=== PATIENT | female | born 1955 | race American Indian/Alaskan Native ===

== ENCOUNTER 2020-03-11 12:32 | Emergency (ER) | payer OTHER ==
[2020-03-11] MEDS ORDERED: ASPIRIN 325 MG TAB PO ONE (12:38)
[2020-03-11] MEDS ORDERED: ADENOSINE 6 MG/2 ML INJ ONE (12:43)
--- NOTE | 2020-03-11 13:08 | Emergency Department Report ---
ED General Adult HPI - General Chief complaint: Chest Pain Stated complaint: CHEST PAIN Time Seen by Provider: 03/11/20 12:50 Source: patient Mode of arrival: Ambulatory Limitations: No Limitations - History of Present Illness Initial comments: This is a 64-year-old female who arrives in supraventricular tachycardia to triage. She states that it began at approximately 1130. She did not have prodromal types symptoms. She states that she has had a mild degree of shortness of breath with the tachycardia. She states she had minimal chest discomfort and a mild headache. She is fully ambulatory without neurological change. She did not feel presyncopal. Patient states that she has had episodes like this before. She has not sought out medical care for the same. They were less persistent. She is on no current medications. She denies recent alcohol, substance abuse or consumption of energy drinks or excessive caffeine. She is on no current medications. Apparently she does have a history of mitral valve prolapse. -: Sudden Associated Symptoms: denies other symptoms (Except as above indicated) Treatments Prior to Arrival: none - Related Data Previous Rx's Medication Instructions Recorded Last Taken Type Hydrocodone/Chlorphen P-Stirex 5 ml PO Q12HR PRN #115 ml 10/11/19 Unknown Rx [Tussionex Pennkinetic Susp] Ondansetron [Zofran Odt] 4 mg PO Q8HR PRN #20 tab.rapdis 10/11/19 Unknown Rx Promethazine [Phenergan] 25 mg DE Q6HR PRN #15 supp.rect 10/11/19 Unknown Rx dilTIAZem CD [Cardizem CD] 120 mg PO DAILY #30 cap 03/11/20 Unknown Rx Allergies Allergy/AdvReac Type Severity Reaction Status Date / Time Sulfa (Sulfonamide Allergy Itching Verified 10/11/19 03:09 Antibiotics) ED Review of Systems ROS: Stated complaint: CHEST PAIN Other details as noted in HPI Constitutional: denies: chills, fever Eyes: denies: eye pain, vision change ENT: denies: ear pain, throat pain Respiratory: denies: cough, shortness of breath, wheezing Cardiovascular: as per HPI Endocrine: no symptoms reported Gastrointestinal: denies: abdominal pain, nausea Genitourinary: denies: urgency, dysuria, discharge Musculoskeletal: denies: back pain, joint swelling, arthralgia Skin: denies: rash, lesions Neurological: headache (Mild today). denies: weakness, paresthesias Psychiatric: denies: anxiety, depression Hematological/Lymphatic: denies: easy bleeding, easy bruising ED Past Medical Hx - Past Medical History Previous Medical History?: Yes Additional medical history: mitral valve prolapse - Social History Substance Use Type: None - Medications Home Medications: Home Medications Medication Instructions Recorded Confirmed Last Taken Type Hydrocodone/Chlorphen P-Stirex 5 ml PO Q12HR PRN #115 ml 10/11/19 Unknown Rx [Tussionex Pennkinetic Susp] Ondansetron [Zofran Odt] 4 mg PO Q8HR PRN #20 tab.rapdis 10/11/19 Unknown Rx Promethazine [Phenergan] 25 mg DE Q6HR PRN #15 supp.rect 10/11/19 Unknown Rx dilTIAZem CD [Cardizem CD] 120 mg PO DAILY #30 cap 03/11/20 Unknown Rx ED Physical Exam - General Limitations: No Limitations General appearance: alert, in no apparent distress - Head Head exam: Present: atraumatic, normocephalic - Eye Eye exam: Present: normal appearance. Absent: scleral icterus - ENT ENT exam: Present: mucous membranes moist - Neck Neck exam: Present: normal inspection - Respiratory Respiratory exam: Present: normal lung sounds bilaterally. Absent: respiratory distress - Cardiovascular Cardiovascular Exam: Present: tachycardia. Absent: systolic murmur, diastolic murmur, rubs, gallop - GI/Abdominal GI/Abdominal exam: Present: soft, normal bowel sounds. Absent: distended, tenderness, guarding, rebound - Extremities Exam Extremities exam: Present: normal inspection - Back Exam Back exam: Present: normal inspection - Neurological Exam Neurological exam: Present: alert, oriented X3, CN II-XII intact. Absent: motor sensory deficit - Psychiatric Psychiatric exam: Present: normal affect, normal mood - Skin Skin exam: Present: warm, dry, intact, normal color. Absent: rash ED Course Vital Signs 03/11/20 03/11/20 13:14 13:29 Temperature 98.2 F Pulse Rate 101 H Respiratory 18 18 Rate Blood Pressure 122/88 Blood Pressure 122/88 [Right] O2 Sat by Pulse 96 100 Oximetry - Reevaluation(s) Reevaluation #1: Patient remained asymptomatic here after chemical cardioversion with 6 mg of adenosine. She will be referred to cardiology for further work-up. I will start her on diltiazem as she states that this seems to be a recurrent problem 03/11/20 14:09 Reevaluation #2: Patient remains asymptomatic after cardioversion. 03/11/20 14:16 ED Medical Decision Making - Lab Data Result diagrams: 03/11/20 12:38 03/11/20 12:38 Laboratory Results - last 24 hr 03/11/20 03/11/20 03/11/20 12:38 12:38 Unknown WBC 6.0 RBC 4.48 Hgb 13.9 Hct 41.9 MCV 94 MCH 31 MCHC 33 RDW 13.3 Plt Count 231 Lymph % (Auto) 37.9 H [place] % (Auto) 3.4 Eos % (Auto) 0.3 Baso % (Auto) 1.2 Lymph # 2.3 [place] # 0.2 Eos # 0.0 Baso # 0.1 Seg Neutrophils % 57.2 Seg Neutrophils # 3.5 Sodium 142 Potassium 3.6 Chloride 105.9 Carbon Dioxide 22 Anion Gap 18 BUN 16 Creatinine 0.9 Estimated GFR > 60 BUN/Creatinine Ratio 18 Glucose 153 H Calcium 9.8 Magnesium 1.90 Total Bilirubin 0.30 Direct Bilirubin < 0.2 Indirect Bilirubin 0.1 AST 22 ALT 16 Alkaline Phosphatase 82 Total Creatine Kinase 219 H CK-MB (CK-2) 4.3 H CK-MB (CK-2) Rel Index 1.9 Troponin T < 0.010 Total Protein 6.6 Albumin 4.3 Albumin/Globulin Ratio 1.9 TSH Free T4 03/11/20 Unknown WBC RBC Hgb Hct MCV MCH MCHC RDW Plt Count Lymph % (Auto) [place] % (Auto) Eos % (Auto) Baso % (Auto) Lymph # [place] # Eos # Baso # Seg Neutrophils % Seg Neutrophils # Sodium Potassium Chloride Carbon Dioxide Anion Gap BUN Creatinine Estimated GFR BUN/Creatinine Ratio Glucose Calcium Magnesium Total Bilirubin Direct Bilirubin Indirect Bilirubin AST ALT Alkaline Phosphatase Total Creatine Kinase CK-MB (CK-2) CK-MB (CK-2) Rel Index Troponin T Total Protein Albumin Albumin/Globulin Ratio TSH 1.420 Free T4 1.07 - EKG Data -: EKG Interpreted by De EKG shows normal: sinus rhythm, axis, intervals, QRS complexes, ST-T waves Rate: tachycardia - EKG Data Interpretation: other (. No significant repolarization abnormality) First EKG SVT narrow complex at 172 diffuse inverted T waves/ST abnormality 03/11/20 14:15 - Radiology Data Radiology results: report reviewed (Mild subsegmental atelectasis left lower lobe), image reviewed I do not think this is clinically significant. Critical Care Time: Yes Critical care time in (mins) excluding proc time.: 45 Critical care attestation.: If time is entered above; I have spent that time in minutes in the direct care of this critically ill patient, excluding procedure time. ED Disposition Clinical Impression: SVT (supraventricular tachycardia) Disposition: - TO HOME OR SELFCARE Is pt being admited?: No Does the pt Need Aspirin: No Condition: Stable Instructions: Supraventricular Tachycardia (ED) Additional Instructions: Return any recurrent problem, chest pain or shortness of breath. Otherwise follow-up with [facility] and primary care medical clinic. Rx diltiazem to reduce likelihood of recurrence. Avoid caffeine, alcohol and energy drinks. Prescriptions: dilTIAZem CD [Cardizem CD] 120 mg PO DAILY #30 cap Referrals: [facility] [Provider Group] - 3-5 Days CITLALLI ALFONSO MD [Staff Physician] - 3-5 Days Time of Disposition: 14:11
--- NOTE | 2020-03-11 13:11 | XRay Report ---
CHEST 1 VIEW INDICATION / CLINICAL INFORMATION: Chest Pain. COMPARISON: 10/11/2019 FINDINGS: SUPPORT DEVICES: None. HEART / MEDIASTINUM: No significant abnormality. LUNGS / PLEURA: No significant pulmonary or pleural abnormality. No pneumothorax. ADDITIONAL FINDINGS: Mild left basilar atelectasis. IMPRESSION: 1. Left lower lobe subsegmental atelectasis. Signer Name: Akbar Molina MD Signed: 03/11/2020 1:07 PM Workstation Name: [id number]
[2020-03-11 13:20] LABS: Creatine Kinase MB 4.3 ng/mL (0.0-4.0)
[2020-03-11 13:22] LABS: Basophils # (Auto) 0.1 K/mm3 (0.0-0.1); Basophils % (Auto) 1.2 % (0.0-1.8); Eosinophils % (Auto) 0.3 % (0.0-4.3); Hematocrit 41.9 % (30.3-42.9); Hemoglobin 13.9 gm/dl (10.1-14.3); Lymphocytes # (Auto) 2.3 K/mm3 (1.2-5.4); Lymphocytes % (Auto) 37.9 % (13.4-35.0); Mean Corpuscular HGB Conc 33 % (30-34); Mean Corpuscular Volume 94 fl (79-97); Monocytes # (Auto) 0.2 K/mm3 (0.0-0.8); Monocytes % (Auto) 3.4 % (0.0-7.3); Platelet Count 231 K/mm3 (140-440); Red Blood Count 4.48 M/mm3 (3.65-5.03); Red Cell Distribution Width 13.3 % (13.2-15.2)
[2020-03-11 13:23] LABS: Alanine Aminotransferase 16 units/L (7-56); Albumin 4.3 g/dL (3.9-5)
[2020-03-11 13:24] LABS: Bilirubin,Direct < 0.2 mg/dL (0-0.2)
[2020-03-11 13:30] LABS: Free T4 (Free Thyroxine) 1.07 ng/dL (0.76-1.46)
[2020-03-11 13:41] LABS: BUN/Creatinine Ratio 18; Blood Urea Nitrogen 16 mg/dL (7-17); Calcium 9.8 mg/dL (8.4-10.2); Hemolysis Index 6
[2020-03-11 15:01] VITALS: BP 117/78
== END 2020-03-11 15:01 | disposition home or self-care (01) ==
LOC: ED 12:32
DX: I47.1 Supraventricular tachycardia (principal); Z79.899 Other long term (current) drug therapy; Z88.2 Allergy status to sulfonamides
CPT/HCPCS: 36415; 71045; 80048; 80076; 82550; 82553; 83735; 84439; 84443; 84484; 85025; 93005; 99284; J0153